=== PATIENT | female | born 1970 | race American Indian/Alaskan Native ===

== ENCOUNTER 2021-02-28 20:25 | Emergency (ER) | payer OTHER ==
--- NOTE | 2021-02-28 20:41 | EDM.PDOC ---
ED HPI GENERAL MEDICAL PROBLEM - General Chief Complaint: ENT Problem Stated Complaint: LEFT SIDE OF JAW, POSSIBLE OUT OF SOCKET Time Seen by Provider: 02/28/21 20:40 Source of Information: Reports: Patient, RN, RN Notes Reviewed History Limitations: Reports: No Limitations - History of Present Illness INITIAL COMMENTS - FREE TEXT/NARRATIVE: Patient presents to the ED via personal vehicle with complaints of pain to the left lateral jaw. The patient notes the pain began today, but is unable to state what she was doing at the onset of the pain as it slowly progressed throughout the day. She characterizes the pain as an ache which worsens with mastication but is alleviated with pressure the preauricular area. The patient does report a history of jaw dislocation about 20 years ago; she does not remember which side of her jaw was dislocated. The patient does note her upper denture was realigned by her well logging operator mud analysis and she has noticed it is thicker as well as a "...little long" on the left side. She denies any oral sores, fever, shaking chills, drooling, sore throat, or limited mobility of her jaw or neck. She states she has not eaten any foods that were excessively sour or salty. She does attest to a congested cough that she has had for about three weeks following treatment for sinusitis. She has not taken any pain medications for this problem. - Related Data Allergies Allergy/AdvReac Type Severity Reaction Status Date / Time No Known Allergies Allergy Verified 02/28/21 20:38 Home Meds: Home Meds Glimepiride 1 mg PO DAILY 02/28/21 [History] Levothyroxine [Synthroid] 50 mcg PO ACBREAKFAST 02/28/21 [History] Omeprazole 40 mg PO DAILY 02/28/21 [History] PARoxetine HCL [Paroxetine HCl] 40 mg PO DAILY 02/28/21 [History] Triamterene/Hydrochlorothiazid [Triamterene-HCTZ 37.5-25 MG] 0.5 tab PO DAILY 02/28/21 [History] amLODIPine [Norvasc] 5 mg PO DAILY 02/28/21 [History] metFORMIN HCl [Metformin HCl] 1,000 mg PO BID 02/28/21 [History] ED ROS ENT - Review of Systems Review Of Systems: Comprehensive ROS is negative, except as noted in HPI. ED EXAM, ENT - Physical Exam Exam: See Below Exam Limited By: No Limitations General Appearance: Alert, No Apparent Distress Eye Exam: Bilateral Eye: EOMI, Normal Inspection, PERRL (3mm) Ears: Normal External Exam, Normal Canal, Hearing Grossly Normal, Auricular Tenderness (Preauricular tenderness that is alleviated with palpation), TM Dullness, TM Fluid. No: Auricular Erythema, Auricular Ecchymosis, Mastoid Swelling, Mastoid Tenderness, TM Bulging, TM Erythema, TM Perforation Nose: Normal Mucousa, No Blood, Clear Rhinorrhea Mouth/Throat: Other (Upper denture in place). No: Dental Abcess, Dental Tenderness, Drooling, Gum Swelling, Hoarse Voice, Muffled Voice, Oral Ulcers, Pharyngeal Erythema, Throat Pain, Throat Swelling, Tonsillar Erythema, Tonsillar Exudates, Tonsillar Swelling, Uvular Deviation, Uvular Edema Head: Atraumatic, Normocephalic Neck: Normal Inspection, Supple, Non-Tender, Full Range of Motion. No: Lymphadenopathy (L), Lymphadenopathy (R) Respiratory/Chest: No Respiratory Distress, Lungs Clear, Normal Breath Sounds, No Accessory Muscle Use, Chest Non-Tender Cardiovascular: Normal Peripheral Pulses, Regular Rate, Rhythm, No Edema, No Gallop, No JVD, No Rub, Systolic Murmur (3/6, loudest over the pulmonic area; No radiation into carotids, bilaterally) Neurological: Alert, Oriented, CN II-XII Intact, Normal Cognition, Normal Gait, No Motor/Sensory Deficits Psychiatric: Normal Affect, Normal Mood Skin: Warm, Dry, Intact, Normal Color, No Rash. No: Ecchymosis, Erythema, Jaundice, Mottled, Pallor, Petechiae Course - Vital Signs Last Recorded V/S: Last Vital Signs Temp 98 F 02/28/21 20:41 Pulse 100 02/28/21 20:41 Resp 18 02/28/21 20:41 BP Pulse Ox 97 02/28/21 20:41 - Re-Assessments/Exams Free Text/Narrative Re-Assessment/Exam: 02/28/21 Given patient history and examination will withhold imaging at this time as dislocation of jaw is unlikely. Discussed dental realignment as possible cause for jaw pain and importance of reevaluation of new denture by well logging operator mud analysis. Discussed supportive cares for pain, including OTC analgesics and application of heat. Discussed eustachian tube dysfunction given fluid behind ears. Red flag signs and symptoms which would warrant reevaluation reviewed. Patient verbalized understanding and agreement with the plan of care. Departure - Departure Time of Disposition: 21:02 Disposition: Home, Self-Care 01 Condition: Good Clinical Impression: Denture irritation, Wears dentures Eustachian tube dysfunction Qualifiers: Laterality: bilateral Qualified Code(s): H69.83 - Other specified disorders of Eustachian tube, bilateral - Discharge Information *PRESCRIPTION DRUG MONITORING PROGRAM REVIEWED*: Not Applicable *COPY OF PRESCRIPTION DRUG MONITORING REPORT IN PATIENT TOPHER: Not Applicable Instructions: Eustachian Tube Dysfunction Forms: ED Department Discharge Additional Instructions: 1.) Take Flonase, 2 sprays in each nostril, daily. Should you develop nose bleeds you can stagger the dose to 1 spray in each nostril in the morning and at night. 2.) You may take ibuprofen (Motrin/Advil) 400mg every six hours, as pain persists. You may also take acetaminophen (Tylenol) 650mg every six hours, as pain persists. You may stagger these medications so you are taking a dose every three hours. 3.) Apply warm compresses to the left jaw to help jaw muscles relax. 4.) Follow up with your well logging operator mud analysis regarding today's visit as you may need reconfiguration of your new denture. Sepsis Event Note (ED) - Focused Exam Vital Signs: Vital Signs Temp Pulse Resp Pulse Ox 02/28/21 20:41 98 F 100 18 97
== END 2021-02-28 21:10 | disposition home or self-care (01) ==
LOC: DL.ED 20:25
DX: H69.83 Other specified disorders of Eustachian tube, bilateral (principal); M27.69 Other endosseous dental implant failure; Z79.899 Other long term (current) drug therapy
CPT/HCPCS: 99283

== ENCOUNTER 2025-10-23 14:21 | Emergency (ER) | payer OTHER ==
[2025-10-23 14:46] LABS: BASOPHILS PERCENT AUTO 0.8 % (0.0-1.0); EOSINOPHILS PERCENT AUTO 3.1 % (1.0-3.0); LYMPHOCYTES PERCENT AUTO 22.5 % (20.5-50.1); MONOCYTES PERCENT AUTO 6.8 % (2-8); NEUTROPHILS PERCENT AUTO 66.8 % (42.2-75.2); PLATELET COUNT,PLT 230 10^3/uL (150-450); RED BLOOD CELL COUNT 4.64 10^6/uL (4.2-5.4); WHITE BLOOD CELL COUNT,WBC 8.9 10^3/uL (5.0-10.0)
[2025-10-23 15:00] LABS: A/G RATIO 1.1; ALANINE AMINOTRANSFERASE,ALT 21 U/L (14-59); ASPARTATE AMNIOTRANSFERASE,AST 16 U/L (15-37); BILIRUBIN TOTAL 0.2 mg/dL (0.2-1.0); BLOOD UREA NITROGEN,BUN 8 mg/dL (7-18); CARBON DIOXIDE,CO2 29 mmol/L (21-32); CHLORIDE,CL 104 mmol/L (98-107); CREATININE 0.92 mg/dL (0.55-1.02); EST CRCL DRUG DOSING (CG) 55.81 mL/min; GLUCOSE RANDOM 121 mg/dL (70-99); POTASSIUM,K 3.0 mmol/L (3.5-5.1); PROTEIN TOTAL,TP 7.8 g/dL (6.4-8.2); SODIUM,NA 144 mmol/L (136-145)
[2025-10-23 15:01] LABS: ESTIMATED GFR 73 mL/min (>=60)
[2025-10-23] MEDS: Potassium Chloride 10 MEQ Tab.ER PO ONE (16:14)
[2025-10-23] MEDS: Magnesium Sulfat/D5W 1GM/100ML 1 GM in Premix Bag 1 BAG IV ONE (16:16)
[2025-10-23] MEDS: Iopamidol 755 Mg/ML 100 ML Bottle IVPUSH ONE (16:21)
== END 2025-10-23 17:35 | disposition home or self-care (01) ==
LOC: DL.ED 14:21
DX: J44.1 Chronic obstructive pulmonary disease with (acute) exacerbation (principal); I10 Essential (primary) hypertension; E11.9 Type 2 diabetes mellitus without complications; E03.9 Hypothyroidism, unspecified; Z86.16 Personal history of COVID-19; Z79.890 Hormone replacement therapy; Z79.899 Other long term (current) drug therapy; Z79.84 Long term (current) use of oral hypoglycemic drugs
CPT/HCPCS: 36415; 71045; 71275; 80053; 83735; 83880; 84484; 85025; 85379; 86140; 93005; 96365; 99285; A9270; J3475; J7620; Q9967